=== PATIENT | male | born 1985 | race Caucasian/White ===

== ENCOUNTER 2025-04-23 17:18 | Emergency (ER) | payer BC, SELFPAY ==
[2025-04-23 17:30] VITALS: PULSE 61; RESP 16; TEMP 36.7; O2SAT 99
--- NOTE | 2025-04-23 17:44 | XRR_ITS ---
PROCEDURE INFORMATION: Exam: XR Right Ribs with PA Chest Exam date and time: 04/23/2025 5:47 PM Age: 40 years old Clinical indication: Pleuritic pain; RT posterior lower rib pain after twisting injury; Limited rom; Additional info: Right lower posterior rib pain TECHNIQUE: Imaging protocol: Radiologic exam of the right ribs with PA chest. Views: 3 views COMPARISON: No relevant prior studies available. FINDINGS: Lungs: Unremarkable. No consolidation. Pleural spaces: Unremarkable. No pleural effusion. No pneumothorax. Heart/Mediastinum: Unremarkable. No cardiomegaly. Bones/joints: No evidence of rib fracture. XR/XR ribs RT mn 3V w [id number] IMPRESSION: No acute findings.
[2025-04-23 17:49] VITALS: RESP 21; O2SAT 99
[2025-04-23] MEDS: ketorolac 60 mg/2 mL INJ IM (17:49)
[2025-04-23] MEDS: oxyCODONE-APAP 5-325 mg Tablet 1 TAB PO ×2 (17:49→18:51)
[2025-04-23] MEDS: methocarbamol 750 mg Tablet 1500 MG PO (17:49)
--- NOTE | 2025-04-23 17:50 | W.ED.GENADLT ---
HPI - General Adult General: Chief complaint: General Medical Stated complaint: right side muscle pull Time Seen by Provider: 04/23/25 17:35 History of Present Illness: 40-year-old male is presenting with right lower rib pain, he states he suddenly lifted his right hand up to dunk a ball into a hoop and felt a sudden pain in the right mid back and it hurts to get deep breath. He denies falling or trauma. Did not strike his head and his pain is in the right posterior lower rib section and no other place. No associated numbness or motor weakness no shortness of breath other than it hurts with deep inspiration. This just occurred prior to arrival he has not taken any medicines yet. Related Data Previous Rx's ?Medication ?Instructions ?Recorded ibuprofen 600 mg tablet 600 mg PO Q8H PRN pain #20 tabs 04/23/25 methocarbamol 750 mg tablet 750 mg PO TID #20 tabs 04/23/25 oxycodone-acetaminophen 5 mg-325 1 tab PO Q8H PRN pain #14 tabs 25 mg tablet (Endocet) Allergies Allergy/AdvReac Type Severity Reaction Status Date / Time No Known Allergies Allergy Verified 04/23/25 17:33 Review of Systems Narrative: Const: no fever, no chills Skin: no rashes Eyes: denies blurry vision ENMT: denies nasal congestion, throat pain Card: no chest pain, no palpitations, no edema Resp: no shortness of breath, no cough GI: no abdominal pain, no nausea, no vomiting, no diarrhea : no urinary frequency, no urgency, no dysuria, no flank pain Musc: no neck pain, +back pain, no extremity pain Neuro: no headache(s), no confusion, no numbness, no motor weakness Physical Exam Narrative: EXAM NARRATIVE: GEN: well-appearing, in no acute distress Head: normocephalic, atraumatic Eyes: pupils, equal, round and reactive to light, extraocular movements are intact, no conjunctival redness or discharge. Ears: external ears are normal. Nose: Normal nares. Mouth and throat: MMM. Normal gums, mucosa, palate. NECK: Supple, with no masses. CV: RRR, no m/r/g. LUNGS: CTAB, no w/r/c. ABD: Soft, NT/ND, NBS, no masses or organomegaly. SKIN: Warm, well perfused. No skin rashes or abnormal lesions. MSK: + Tenderness at the posterior right lower ribs but no crepitus no swelling no ecchymosis, the rest of the chest wall is nontender pelvis is stable nontender. Will patient able to get up and ambulate and otherwise extremities exam normal, no deformity, no tenderness, normal ROM, no edema NEURO: alert and oriented x 3, normal speech, no motor or sensory deficits, no focal neuro deficits. PSYCH: Good Judgment. Pleasant, cooperative. appropriate mood. Course Vital Signs: Vital signs: Vital Signs Temperature 98.1 F 04/23/25 17:30 Pulse Rate 61 04/23/25 17:30 Respiratory Rate 21 H 04/23/25 17:49 Blood Pressure 138/88 04/23/25 17:59 Pulse Oximetry 99 04/23/25 17:49 MDM - General Adult Medical Decision Making Patient presented with positional right lower posterior thoracic back pain consistent with thoracic muscle strain versus rib fracture. X-ray of the ribs and chest were obtained, imaging reveals no rib fractures, no pneumothorax. Patient was given pain medications for pain. Patient does feel improved after pain medications. Results discussed recommend outpatient follow-up will send home with a course of pain medications and muscle relaxants. Lab Data Radiology Impressions Ribs X-Ray 04/23/25 17:44 IMPRESSION: No acute findings. All radiology interpretation(s) finalized by discharge Discharge Plan Discharge Patient Disposition: Home Clinical Impression: Acute thoracic back pain Condition: Stable Prescriptions: New oxycodone-acetaminophen [Endocet] 5-325 mg tablet 1 tab PO Q8H PRN (Reason: pain) Qty: 14 0RF ibuprofen 600 mg tablet 600 mg PO Q8H PRN (Reason: pain) Qty: 20 0RF methocarbamol 750 mg tablet 750 mg PO TID Qty: 20 0RF Discharge Orders: Discharge ED (Routine); Ordered 04/23/25 Ordered By: Ruby Blanchard Patient Instructions: Rib Contusion (ED) Print Language: Estonian Coding Level of Care Code ED Coroner'S Juror for Bola Coelho
[2025-04-23 17:59] VITALS: BP 138/88
[2025-04-23 18:51] VITALS: RESP 18
== END 2025-04-23 18:55 | disposition home or self-care (01) ==
PROVIDERS: Emergency Provider Emergency Medicine
DX: M54.6 Pain in thoracic spine (principal); R07.81 Pleurodynia; X50.0XXA Overexertion from strenuous movement or load, initial encounter; Y93.67 Activity, basketball
CPT/HCPCS: 71101; 96372; 99284; J1885; J9999

== ENCOUNTER 2025-08-08 16:54 | Emergency (ER) | payer BC, SELFPAY ==
--- OUTSIDE RECORDS SUMMARY | 2025-08-08 17:00 | XMS_ITS | Encounter Summary ---
Author Organization [facility] Address [address] [place] [address] Care Team Providers Care Commercial Ocean Clammer Name Role Phone Unavailable Primary Care Provider Unavailabl e Encounter Details Date Type Department Care Team (Late st Contact Info) Description 01/28/2008 Outpatient Historical [facility] Plastic Surgery 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
--- OUTSIDE RECORDS SUMMARY | 2025-08-08 17:00 | XMS_ITS | Encounter Summary ---
Author Organization [employer] [facility] Address [address] [place] [address] Care Team Providers Care Director Long Term Care Name Role Phone Unavailable Primary Care Provider Unavailabl e Encounter Details Date Type Department Care Team (Late st Contact Info) Description 02/28/2008 Outpatient Historical [facility] Hand Therapy [address] [place] [address] [place] [address] Master Rosenberg MD [address] [facility] [address] [place] [address] Open Wound of Hand except Finger(s) Alone, with Tendon Involvement Social History Tobacco Use Types Packs/Day Years Used Date Smoking Tobacco: Never Assessed Sex and Gender Information Value Date Recorded Sex Assigned at Not on file 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
--- OUTSIDE RECORDS SUMMARY | 2025-08-08 17:00 | XMS_ITS | Encounter Summary ---
Author Organization [facility] Address [address] [place] [address] Care Team Providers Care Computer Forwarding System Markup Clerk Name Role Phone Unavailable Primary Care Provider Unavailabl e Encounter Details Date Type Department Care Team (Late st Contact Info) Description 06/02/[address] [facility] Wound Care [address] 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
--- OUTSIDE RECORDS SUMMARY | 2025-08-08 17:00 | XMS_ITS | Encounter Summary ---
Author Organization [facility] Address [address] [place] [address] Care Team Providers Care Environmental Engineer Name Role Phone Unavailable Primary Care Provider Unavailabl e Encounter Details Date Type Department Care Team (Latest Contact Info) Description 06/11/2004 Outpatient Historical [facility]-[address] [place] [address] Joey Marie MD NO ADDRESS ON FILE SCAR & FIBROSIS OF SKIN (Primary Dx); SURGERY FOLLOWUP, UNSPEC Social History Tobacco Use Types Packs/Day Years Used Date Smoking Tobacco: Never Assessed Sex and Gender Information Value Date Recorded Sex Assigned at Not on file 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
--- OUTSIDE RECORDS SUMMARY | 2025-08-08 17:00 | XMS_ITS | Encounter Summary ---
Author Organization [facility] Address [address] [place] [address] Care Team Providers Care Entertainment Production Professional Name Role Phone Unavailable Primary Care Provider Unavailabl e Encounter Details Date Type Department Care Team (Late st Contact Info) Description 12/31/2007 Outpatient Historical [facility] Plastic Surgery 

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
--- OUTSIDE RECORDS SUMMARY | 2025-08-08 17:00 | XMS_ITS | Clinical Summary ---
Author Organization [facility] Address [address] 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
--- OUTSIDE RECORDS SUMMARY | 2025-08-08 17:00 | XMS_ITS | Clinical Summary ---
Author Organization [facility] Address [address] [facility] [place]: Epic Prelude ADT [place] [address] Care Team Providers Care Appeals Specialist Name Role Phone Ihsan Rucker MD Primary Care Provid er Allergies Active Allergy Reactions Criticality Noted Date Comments Hydrocodone Nausea and Vomiting Low 03/31/2016 Medications pantoprazole (PROTONIX) 20 mg Tablet, Delayed Release (E.C.)Indication s:Gastroesophage al reflux disease, unspecified whether esophagitis present TAKE 1 TABLET BY MOUTH TWICE DAILY BEFORE BREAKFAST AND AT BEDTIME 180 Tablet 3 5 Active tadalafiL (CIALIS) 20 mg tabletIndication s:Erectile dysfunction, unspecified erectile dysfunction type TAKE 1 TABLET BY MOUTH EVERY DAY NEEDED FOR ED NO MORE THAN 1 TAB/DAY 30 Tablet 6 5 Active Active Problems Problem Noted Date Diagnosed Date Prediabetes 05/04/2024 Family history of colon cancer-in great uncle; g randfather 10/31/2023 GERD (gastroesophageal reflux disease) 3 Chewing tobacco use 05/27/2023 Erectile dysfunction 05/05/2023 Resolved Problems Problem Noted Date Diagnosed Date Resolved Date Tobacco use 05/01/2023 05/27/2023 Encounters Date Type Department Care Team Description 07/01/2025 Refill [facility] Family Medicine [address] [address] Ihsan Rucker MD Gastroesophageal reflux disease, unspecified whether esophagitis present; Erectile dysfunction, unspecified erectile dysfunction type from Last 3 Months Family History Medical History Relation Name Comments Breast Cancer Neg Hx High Cholesterol Neg Hx Social History Tobacco Use Types Packs/Day Years Used Date Smoking Tobacco: Former Cigarettes Smokeless Tobacco: Current Chew Tobacco Cessation:Ready to Q uit: Not Asked; Counseling Given: Not Answered Alcohol Use Standard Drinks/Week Comments Not Currently 0 (1 standard drink = 0.6 oz pur e alcohol) Sex and Gender Information Value Date Recorded Sex Assigned at Not on file Legal Sex Male 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 Gender Identity Not on file Sexual Orientation Not on file Last Filed Vital Signs Vital Sign Reading Time Taken Comments Blood Pressure 118/82 05/03/2024 8:56 AM CDT Pulse 75 05/03/2024 8:56 AM CDT Temperature 36.4 C (97.6 F) 05/03/2024 8:56 AM CDT Respiratory Rate - - Oxygen Saturation 97% 05/03/2024 8:56 AM CDT Inhaled Oxygen Concentration - - Weight 91.6 kg (202 lb) 05/03/2024 8:56 AM CDT Height 181 cm (5' 11.25 ) 05/03/2024 8:56 AM CDT Body Mass Index 27.98 05/03/2024 8:56 AM CDT Plan of Treatment Health Maintenance Due Date Last Done Comments DTAP/TDAP/TD VACCINES (1 - Tdap) 2003 HEPATITIS B VACCINES (1 of 3 - 19+ 3-dose series) 08/2003 HPV VACCINES (1 - 3-dose SCDM series) 2011 INFLUENZA VACCINE (#1) 2025 Care Teams Appeals Specialist Relationship Specialty Start Date End Date Ihsan Ruckre MD [address] [id number] PCP - General Family Practice 05/01/23
--- OUTSIDE RECORDS SUMMARY | 2025-08-08 17:00 | XMS_ITS | Encounter Summary ---
Author Organization [facility] Address [address] [place] [address] Care Team Providers Care Fairground Operator Name Role Phone Unavailable Primary Care Provider Unavailabl e Encounter Details Date Type Department Care Team (Late st Contact Info) Description 01/28/2008 Outpatient Historical [facility] Hand Therapy [address] [address] [place] [address] Master Rosenberg MD [address] [facility] [address] [place] [address] Open Wound of Hand except Finger(s) Alone, with Tendon Involvement Social History Tobacco Use Types Packs/Day Years Used Date Smoking Tobacco: Never Assessed Sex and Gender Information Value Date Recorded Sex Assigned at Not on file Legal Sex Male 7:[address]NAGER Gender Identity Not on file Sexual Orientation Not on file documented as of this encounter Plan of Treatment Not on file documented as of this encounter Visit Diagnoses Diagnosis Open wound of hand except finger(s) alone, with tendon involvement documented in this encounter
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
--- OUTSIDE RECORDS SUMMARY | 2025-08-08 17:00 | XMS_ITS | Encounter Summary ---
Author Organization [facility] Address [address] [place] [address] Care Team Providers Care Youth Services Specialist Name Role Phone Unavailable Primary Care Provider Unavailabl e Encounter Details Date Type Department Care Team (Late st Contact Info) Description 05/02/2004 Outpatient Historical [facility] Wound Care [address] 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
--- OUTSIDE RECORDS SUMMARY | 2025-08-08 17:00 | XMS_ITS | Encounter Summary ---
Author Organization [employer] [facility] Address [address] [place] [address] Care Team Providers Care Digital Content Marketing Manager Name Role Phone Unavailable Primary Care Provider Unavailabl e Encounter Details Date Type Department Care Team (Late st Contact Info) Description 04/07/2008 Outpatient Historical [facility] Master Rosenberg MD [address] [facility] [address] [place] [address] Social History Tobacco Use Types Packs/Day Years Used Date Smoking Tobacco: Never Assessed Sex and Gender Information Value Date Recorded Sex Assigned at Not on file 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 No traumatic change is seen. Soft tissue swelling of the hand is present without obvious foreign body or air. Impression: No bone abnormality is seen. Clinical correlation is necessary. Dictated By: Waqas Martínez M.D. Electronically Signed By: Waqas Martínze M.D. Date Signed: 04/07/08 Procedure Note Waqas Martínez - 04/07/2008 The bony structures are unremarkable in appearance. No traumatic change isseen. Soft tissue swelling of the hand is present without obvious foreign body or air. Impression: No bone abnormality is seen. Clinical correlation isnecessary. Dictated By: Waqas Martínez M.D. Electronically Signed By: Waqas Martínez M.D. Date Signed: 04/07/08 Master Rosenberg MD DIAGNOSTIC IMAGING ORDDominick HERNANDEZ Final Result documented in this encounter Visit Diagnoses Not on filedocumented in this encounter
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
--- OUTSIDE RECORDS SUMMARY | 2025-08-08 17:00 | XMS_ITS | Encounter Summary ---
Author Organization [facility] Address [address] [place] [address] Care Team Providers Care Legal Activity Adjudicator Name Role Phone Unavailable Primary Care Provider Unavailabl e Encounter Details Date Type Department Care Team (Late st Contact Info) Description 01/06/2008 Outpatient Historical [facility] Plastic Surgery 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
[2025-08-08 17:11] VITALS: BP 138/95; PULSE 66; TEMP 36.9; O2SAT 97
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
[2025-08-08 18:05] VITALS: RESP 19; O2SAT 95
[2025-08-08] MEDS: morphine 4 mg/mL SDV 1 mL IM (18:05)
[2025-08-08] MEDS: ondansetron 2 mg/ML SDV 2 mL 4 MG IM (18:08)
== END 2025-08-08 18:51 | disposition home or self-care (01) ==
PROVIDERS: Emergency Provider Physician Assistant
DX: S20.221A Contusion of right back wall of thorax, initial encounter (principal); V86.95XA Unspecified occupant of 3- or 4- wheeled all-terrain vehicle (ATV) injured in nontraffic accident, initial encounter
CPT/HCPCS: 72131; 96372; 99284; J1885; J2270; J2405